=== PATIENT | female | born 2000 | race Caucasian/White ===

== ENCOUNTER 2023-06-04 04:12 | Emergency (ER) | payer BC, SELFPAY ==
[2023-06-04 04:31] VITALS: BP 151/105; PULSE 116; RESP 18; TEMP 36.4; O2SAT 97; BMI 40.7
--- NOTE | 2023-06-04 04:37 | ED.GENADULT ---
HPI - General Adult General Time Seen by Provider: 04:37 Date Seen: 06/04/23 Chief complaint: Flank Pain Stated complaint: right side pain Time Seen by Provider: 06/04/23 04:37 Source: patient Mode of arrival: ambulatory Limitations: no limitations History of Present Illness HPI narrative: Yolette is a very pleasant 23-year-old female with a history of multiple food allergies, asthma and known kidney stones who comes to the emergency room for evaluation regarding right lower quadrant and right flank pain. Patient notes that overnight she began experiencing right lower quadrant pain. She notes that she also has right flank pain now and has had 2 episodes of vomiting. Patient states that she this is her so 3rd episode of what she believes to be kidney stones. She notes no hematuria and no painful urination. She denies any chance of . She does not have diarrhea. Patient has not taken any pain medication. She does agree that she went to bed feeling okay. Mom is worried that there is maybe something else going on besides kidney stones. Pain is under and ongoing since approximately 2200 hours. Patient felt that she would might be able sleep it off but notes the pain has become worse and thus she comes to the emergency room. Patient describes the pain as pulling in nature. It does appear to be worse with movement. Yolette has not had to have urological surgery in the past. She has had 2 previous instances of kidney stones. Related Data Home Medications Medication Instructions Recorded Confirmed albuterol sulfate .ROUTE 06/04/23 cetirizine 10 mg capsule (All Day 10 mg PO DAILY PRN 06/04/23 06/04/23 Allergy (cetirizine)) epinephrine 0.3 mg/0.3 mL 0.3 ml IM Q5-15M PRN 06/04/23 06/04/23 injection, auto-injector (EpiPen) ibuprofen 200 mg capsule 400 mg PO Q6-8H PRN 06/04/23 06/04/23 Previous Rx's Medication Instructions Recorded ketorolac 10 mg tablet 10 mg PO QID PRN pain 5 days #20 06/04/23 tabs ondansetron 4 mg disintegrating 4 mg PO Q8H #10 tabs 06/04/23 tablet tamsulosin 0.4 mg capsule (Flomax) 0.4 mg PO DAILY #5 caps 06/04/23 Allergies Allergy/AdvReac Type Severity Reaction Status Date / Time cashew nut Allergy Severe Anaphylaxis Verified 06/04/23 05:43 peanut Allergy Unknown Verified 06/04/23 05:43 soy Allergy Unknown Verified 06/04/23 05:43 tree nut Allergy Unknown Verified 06/04/23 05:43 Review of Systems Status of ROS: Reports: 10 or more systems reviewed and unremarkable except as noted in History and below Const: Denies: fever or chills Cardio: Denies: shortness of breath with exertion Resp: Denies: shortness of breath or cough GI: Reports: abdominal pain, nausea and vomiting; Denies: diarrhea or constipation : Denies: painful urination, urinary frequency, urinary urgency or blood in urine Musculo: Reports: back pain (Right flank) Endo: Denies: excessive urination PFSH PFS Medical History Asthma ?J45.909 - Unspecified asthma, uncomplicated (ICD-10) Kidney stone ?N20.0 - Calculus of kidney (ICD-10) Social History Smoking Status: Never smoker Do you use any of these nicotine containing products: None Second hand tobacco smoke exposure: No How often do you have a drink containing alcohol: never How often do you have six or more drinks on one occasion: Never AUDIT-C Alcohol total score: 0 Non-prescribed substance use: denies use service: No Exam Narrative: Exam Narrative: Patient is alert and oriented. She is nontoxic in appearance. She does appear to have some discomfort. External ears eyes nose clear. Heart with regular rate and rhythm at this time although initial presenting pulse was quite high. Lungs are clear bilaterally. Abdomen is is soft. She does have tenderness in the right lower quadrant. No discrete rebound tenderness. No CVA tenderness with percussion. She does have pain in the right lower quadrant and her back flank with hip flexion and internal external rotation of the hip. Positive for discomfort when I hit the bottom of her heel. She is moving all of her extremities. Const: Vital Signs, click to edit/add: Vital Signs - 24 hr 06/04/23 04:31 Temperature 97.6 F Pulse Rate [Right Pulse Oximeter] 116 H Respiratory Rate 18 Blood Pressure [Le ft Forearm] 151/105 H Pulse Oximetry 97 Oxygen Delivery Me thod Room Air Documenting provider has reviewed patient's vital signs: yes Course Course ED Course: Differential diagnosis includes but is not limited to ureteral colic, nephrolithiasis, colitis, appendicitis, ovarian cyst, muscular pull. Will place IV and obtain labs to include CBC, comprehensive, CRP, urinalysis. I am suggesting CT of the abdomen with contrast to rule out any evidence of appendicitis. Toradol 15 mg IV and Zofran 4 mg IV are pending. Yolette and her mom are agreeable to this plan. Reevaluation(s) Reevaluation #1: Patient noted improvement after Toradol and Zofran. Results of CT delayed. Vital Signs Vital signs: Initial Vital Signs Temperature 97.6 F 06/04/23 04:31 Temperature Source Temporal Artery Scan 06/04/23 04:31 Pulse Rate 116 H 06/04/23 04:31 Pulse Rhythm Regular 06/04/23 04:31 Respiratory Rate 18 06/04/23 04:31 Blood Pressure 151/105 H 06/04/23 04:31 Blood Pressure Mean 120 H 06/04/23 04:31 Blood Pressure Position Sitting 06/04/23 04:31 Pulse Oximetry 97 06/04/23 04:31 Oxygen Delivery Method Room Air 06/04/23 04:31 Vital Signs Temperature 97.6 F 06/04/23 04:31 Pulse Rate 116 H 06/04/23 04:31 Respiratory Rate 18 06/04/23 04:31 Blood Pressure 151/105 H 06/04/23 04:31 Pulse Oximetry 97 06/04/23 04:31 Oxygen Delivery Method Room Air 06/04/23 04:31 Temperature 97.6 F 06/04/23 04:31 Pulse Rate 116 H 06/04/23 04:31 Respiratory Rate 18 06/04/23 04:31 Blood Pressure 151/105 H 06/04/23 04:31 Pulse Oximetry 97 06/04/23 04:31 Oxygen Delivery Method Room Air 06/04/23 04:31 Medical Decision Making MDM Narrative Medical decision making narrative: 1. Nephrolithiasis-3 mm obstructing stone at the right UVJ. It is causing mild hydronephrosis. Patient should be able to pass this stone. Will encourage her to strain her urine and offer her a small cup so that she can take this to her primary care provider. I think it would be helpful for her to have this analyzed to see if this is a type of stone that could be prevented. Recommend moderate fluids. 2. Ureteral colic-patient much improved after Toradol. Patient mother states that she really does not like narcotics and usually stops taking them. Will use Toradol 10 mg p.o. q.i.d. p.r.n. up to 5 days as needed for discomfort. Will also issue Zofran 4 mg ODT 1 tablet p.o. q.8 hours p.r.n.. Finally Flomax 0.4 mg p.o. daily for x5 days. I did state to mom there is not a lot of evidence in regards to women using this medication but she did receive it last time and did not have any significant side effects. I do feel it is safe to issue it again this time. 3. Disposition-home at this time. Rest. Moderate fluids. No evidence of your urinary tract infection but should patient experience fever, vomiting, worsening symptoms would have her return to the emergency room. Medical Records Medical records reviewed: Yes I reviewed the patient's medical records Medical records narrative: Medical records from [place] viewed. Lab Data Lab results reviewed: Yes I reviewed the patient's lab results Labs: Lab Results 06/04/23 06/04/23 Range/Units 04:44 05:48 WBC 10.99 (4.50-11.00) K/uL RBC 4.75 (4.00-5.20) m/uL Hgb 13.7 (12.0-16.0) gm/dL Hct 39.2 (33.0-51.0) % MCV 83 (80-100) fL MCH 29 (26-34) pg MCHC 35 (32-36) gm/dL RDW Coeff of Fal[place]i 12.8 (11.5-15.5) % Plt Count 297 (140-440) K/uL Neut % (Auto) 91.5 H (42.0-72.0) % Lymph % (Auto) 5.1 L (20-44) % [place] % (Auto) 3.1 (0.0-11.0) % Eos % (Auto) 0.1 (0.0-7.0) % Baso % (Auto) 0.0 (0.0-3.0) % Neut # (Auto) 10.10 H (1.7-7.0) K/uL Lymph # (Auto) 0.60 L (0.90-2.90) K/uL [place] # (Auto) 0.30 (0.00-0.90) K/UL Eos # (Auto) 0.01 (0.00-0.50) K/uL Baso # (Auto) 0.00 (0.00-0.30) K/uL Abs Immat Gran (auto) 0.02 (0.00-0.30) K/uL Imm/Tot Granulo (auto) 0.2 % Sodium 136 (135-149) mmol/L Potassium 4.2 (3.6-5.1) mmol/L Chloride 107 (96-114) mmol/L Carbon Dioxide 19 L (20-32) mmol/L Anion Gap 10 (7-15) mEq/L BUN 13 (5-24) mg/dL Creatinine 0.7 (0.5-1.5) mg/dL Estimated Creat Clear 123.63 Estimated GFR 126 ml/min Glucose 120 H (60-115) mg/dL Calcium 9.1 (8.4-10.6) mg/dL Total Bilirubin 0.7 (0.1-1.5) mg/dL AST 42 H (12-35) U/L ALT 35 (4-35) U/L Alkaline Phosphatase 71 (40-150) U/L C-Reactive Protein 0.7 (0.5-1.0) mg/dL Total Protein 7.4 (6.0-8.3) g/dL Albumin 4.4 (3.3-5.0) g/dL Urine Color Yellow (Yellow) Urine Appearance Clear (Clear) Urine pH 5.5 (5.0-8.5) Ur Specific [place] >= 1.030 (1.000-1.030) Urine Protein 1+ A (Negative) Urine Glucose (UA) Negative (Negative) Urine Ketones Trace A (Negative) Urine Blood 2+ A (Negative) Urine Nitrite Negative (Negative) Urine Bilirubin Negative (Negative) Urine Urobilinogen 0.2 (0.2-1.0) Ur Leukocyte Esterase Trace A (Negative) Urine RBC 0-2 (0-2) Urine WBC 0-2 (0-5) Ur Squamous Epith Cells Few (None-Few) Urine Bacteria Few A (None) Urine HCG, Qual Negative (Negative) Imaging Data CT scan - abdomen: Attestation: I have reviewed the pertinent imaging results. Radiologist's impression: Lower chest: Unremarkable. Liver: Focal fatty infiltration in the medial segment of the left hepatic lobe adjacent to the intersegmental fissure. Normal in size and attenuation. No suspicious masses. Gallbladder and bile ducts: Unremarkable. No stones or inflammation. No biliary dilatation. Pancreas: Unremarkable. No mass or inflammation. Spleen: Unremarkable. Normal in size. No masses. Adrenal glands: Unremarkable. No nodules. Kidneys: 3 mm obstructing stone at the right ureterovesical junction (2; 158) associated with mild upstream right hydroureteronephrosis and delayed right nephrogram, the latter features consistent with obstructive uropathy. GI tract: Unremarkable. Normal in caliber. No sign of mass or inflammation. Normal appendix. Vasculature: Abdominal aorta is normal in caliber. Mesenteric arteries are patent. Lymph nodes: No lymphadenopathy. Peritoneum/Abdominal Wall: Unremarkable. No sign of mass or infiltration. No free air or significant free fluid. Pelvis: Unremarkable. Bones: Unremarkable for age. IMPRESSION: Obstructing 3 mm right ureterovesical junction stone. Discharge Plan Discharge Clinical Impression: Colic, ureteral, Nephrolithiasis Patient Disposition: Home, Self-Care Condition: Improved Additional Instructions: For nausea you may use Zofran as indicated. Try to push fluids but not over do it. For pain you may use Toradol as directed. This is much like ibuprofen or Motrin. I would avoid the use of those medications but you may use Tylenol if needed. Flomax is a medication that can sometimes help relax the ureter and allow easier passage of the stone. This will also be sent to your pharmacy Return for vomiting, fever, worsening symptoms. Prescriptions: New ketorolac 10 mg tablet 10 mg PO QID PRN (Reason: pain) 5 Days Qty: 20 0RF tamsulosin [Flomax] 0.4 mg capsule 0.4 mg PO DAILY Qty: 5 2RF ondansetron 4 mg tablet,disintegrating 4 mg PO Q8H Qty: 10 0RF No Action albuterol sulfate .ROUTE All Day Allergy (cetirizine) 10 mg capsule 10 mg PO DAILY PRN epinephrine [EpiPen] 0.3 mg/0.3 mL auto-injector 0.3 ml IM Q5-15M PRN Rx Instructions: do not exceed 3 doses per episode ibuprofen 200 mg capsule 400 mg PO Q6-8H PRN Follow Up/Referrals: Provider,Not a Local [Primary Care Provider] - Stand Alone Forms: [facility] Info Instructions
--- NOTE | 2023-06-04 04:45 | CRLHL7_ITS ---
For Patients: As a result of the Century Cures Act, medical imaging exams and procedure reports are released immediately into your electronic medical record. You may view this report before your referring provider. If you have questions, please contact your health care provider. INDICATION: Right lower quadrant pain. TECHNIQUE: CT abdomen and pelvis acquired with 128 cc Isovue 370 IV contrast. COMPARISON: None. FINDINGS: Lower chest: Unremarkable. Liver: Focal fatty infiltration in the medial segment of the left hepatic lobe adjacent to the intersegmental fissure. Normal in size and attenuation. No suspicious masses. Gallbladder and bile ducts: Unremarkable. No stones or inflammation. No biliary dilatation. Pancreas: Unremarkable. No mass or inflammation. Spleen: Unremarkable. Normal in size. No masses. Adrenal glands: Unremarkable. No nodules. Kidneys: 3 mm obstructing stone at the right ureterovesical junction (2; 158) associated with mild upstream right hydroureteronephrosis and delayed right nephrogram, the latter features consistent with obstructive uropathy. GI tract: Unremarkable. Normal in caliber. No sign of mass or inflammation. Normal appendix. Vasculature: Abdominal aorta is normal in caliber. Mesenteric arteries are patent. Lymph nodes: No lymphadenopathy. Peritoneum/Abdominal Wall: Unremarkable. No sign of mass or infiltration. No free air or significant free fluid. Pelvis: Unremarkable. Bones: Unremarkable for age. IMPRESSION: Obstructing 3 mm right ureterovesical junction stone. Please note that all CT scans at this facility use dose modulation, iterative reconstruction, and/or weight-based dosing when appropriate to reduce radiation dose to as low as reasonably achievable. Dictated by Deo Palma MD @ 06/04/2023 7:31:28 AM (Electronically Signed)
[2023-06-04 04:58] LABS: Appearance Urine Clear (Clear); Bilirubin Urine Negative (Negative); Blood Urine 2+ (Negative); Color Urine Yellow (Yellow); Glucose Urine Negative (Negative); Ketones Urine Trace (Negative); Leukocyte Esterase Urine Trace (Negative); Nitrite Urine Negative (Negative); Protein Urine 1+ (Negative); Specific Gravity Urine >= 1.030 (1.000-1.030); Urobilinogen Urine 0.2 (0.2-1.0); pH Urine 5.5 (5.0-8.5)
[2023-06-04 05:10] LABS: Bacteria Urine Few; RBC Urine 0-2 (0-2); Squamous Epithelial Cell Urine Few (None-Few); Ur HCG Qualitative* Negative (Negative); WBC Urine 0-2 (0-5)
[2023-06-04] MEDS: KETOROLAC 15 MG/ML inj IVP (05:26)
[2023-06-04] MEDS: ONDANSETRON 2 MG/ML inj 4 MG IVP (05:26)
[2023-06-04] MEDS: 0.9 % SODIUM CHLORIDE 500 ML 500 ML IV (05:26)
[2023-06-04 05:55] LABS: Eosinophils Absolute Auto 0.01 K/uL (0.00-0.50); Eosinophils Percent Auto 0.1 % (0.0-7.0); Hematocrit 39.2 % (33.0-51.0); Hemoglobin* 13.7 gm/dL (12.0-16.0); Immature Granulocytes Abs Auto 0.02 K/uL (0.00-0.30); Immature Granulocytes Pct Auto 0.2 %; Lymphocytes Percent Auto 5.1 % (20-44); Mean Corpuscular HGB Conc 35 gm/dL (32-36); Mean Corpuscular Hemoglobin 29 pg (26-34); Mean Corpuscular Volume 83 fL (80-100); Monocytes Percent Auto 3.1 % (0.0-11.0); Neutrophils Percent Auto 91.5 % (42.0-72.0); Platelet Count* 297 K/uL (140-440); RDW Coefficient of Variation % 12.8 % (11.5-15.5); Red Blood Count 4.75 m/uL (4.00-5.20); White Blood Count* 10.99 K/uL (4.50-11.00)
[2023-06-04 05:59] LABS: Slide Review Reflex No
[2023-06-04 06:08] LABS: Albumin* 4.4 g/dL (3.3-5.0); Chloride* 107 mmol/L (96-114); Sodium* 136 mmol/L (135-149)
[2023-06-04 06:09] LABS: Potassium* 4.2 mmol/L (3.6-5.1)
[2023-06-04 06:10] LABS: Creatinine* 0.7 mg/dL (0.5-1.5); Est. Creatinine Clearance* 123.63; Estimated Glomerular Filt Rate 126 ml/min
[2023-06-04 06:11] LABS: Alkaline Phosphatase* 71 U/L (40-150); Anion Gap 10 mEq/L (7-15); Aspartate Amino Transferase* 42 U/L (12-35); Bilirubin Total* 0.7 mg/dL (0.1-1.5); Carbon Dioxide* 19 mmol/L (20-32); Total Protein* 7.4 g/dL (6.0-8.3)
[2023-06-04 06:12] LABS: Alanine Aminotransferase* 35 U/L (4-35); Blood Urea Nitrogen* 13 mg/dL (5-24); Calcium* 9.1 mg/dL (8.4-10.6); Glucose* 120 mg/dL (60-115)
[2023-06-04 06:14] LABS: C Reactive Protein* 0.7 mg/dL (0.5-1.0)
== END 2023-06-04 08:04 | disposition home or self-care (01) ==
PROVIDERS: Emergency Provider Family Medicine
DX: N23 Unspecified renal colic (principal); N20.0 Calculus of kidney
CPT/HCPCS: 36415; 74177; 80053; 81001; 81025; 85025; 86140; 87086; 96361; 96374; 96375; 99284; 99285; J1885; J2405; J7120; Q9967